=== PATIENT | male | born 1995 | race Caucasian/White ===

== ENCOUNTER 2021-01-29 00:30 | Emergency (ER) | payer OTHER, SELFPAY ==
[2021-01-29 00:35] VITALS: BP 192/101; PULSE 80; RESP 17; TEMP 36.6; O2SAT 98; BMI 57.6
--- NOTE | 2021-01-29 01:09 | ED_ITS ---
HPI - Ear Problem General: Chief complaint: Ear Stated complaint: Bug in Ear Time Seen by Provider: 01/29/21 00:44 Source: patient Mode of arrival: ambulatory Limitations: no limitations History of Present Illness: HPI Narrative: Moth flew into patient's ear prior to arrival. Feels mouth moving complains of ear pain MD Complaint: ear pain and foreign body Location: left ear Duration: intermittent Severity: moderate Relieving factors: nothing Discharge from ear: no Associated symptoms: Reports no associated symptoms Treatment prior to arrival: none Physical Exam Const: COMMON NORMALS: no acute distress and patient oriented x3 NUTRITIONAL APPEARANCE: obese HENMT: COMMON NORMALS: normocephalic, atraumatic and hearing grossly normal bilaterally HEAD & SCALP: normocephalic and atraumatic TYMPANIC MEMBRANE: other (Moth present blocking tympanic membrane visualization left ear) Neuro: COMMON NORMALS: patient oriented x3 Procedures FB Removal Ear Location: ear canal (L) Foreign Body Suspected: insect TM intact pre-procedure: yes If Insect Suspected: ear canal instilled with other (Saline) Foreign Body Removed: yes Foreign Body Removal Technique: irrigation Tympanic Membrane Intact Post Procedure: Yes Patient Tolerated Procedure: well and no complications Complications: none Course ED course: Irrigation complete of left ear moth removed intact. Follow-up with PCP next week Vital Signs: Vital signs: Vital Signs Temperature 97.8 F 01/29/21 00:35 Pulse Rate 80 01/29/21 00:35 Respiratory Rate 17 01/29/21 00:35 Blood Pressure 192/101 01/29/21 00:35 Pulse Oximetry 98 01/29/21 00:35 Discharge Plan Discharge Patient Disposition: Home Clinical Impression: Foreign body of ear, left Qualifiers: Encounter type: initial encounter Qualified Code(s): T16.2XXA - Foreign body in left ear, initial encounter Condition: Stable Discharge Orders: Discharge ED (Routine); Ordered 01/29/21 Ordered By: Meera Lara Referrals: Nu Paz FNP [Family Provider] - Discharge Diet: Usual diet Discharge Activity: Resume usual activity Patient Instructions: Ear Pain - Adult, Opioid Safety Coding Level of Care Code ED [employer] for Melissa Newberry
[2021-01-29 01:48] VITALS: BP 199/108; PULSE 80; RESP 16; TEMP 37; O2SAT 98
== END 2021-01-29 01:50 | disposition home or self-care (01) ==
PROVIDERS: Emergency Provider Nurse Practitioner Family; Family Provider Nurse Practitioner Family
DX: T16.2XXA Foreign body in left ear, initial encounter (principal); X58.XXXA Exposure to other specified factors, initial encounter
CPT/HCPCS: 69200; 99281

== ENCOUNTER → 2022-03-31 08:08 | Outpatient (BNVA) | payer OTHER, SELFPAY | PROVIDERS: Family Provider Nurse Practitioner Family; PCP Family Medicine; Visit Provider Family Medicine | DX: I10 Essential (primary) hypertension (principal); G47.33 Obstructive sleep apnea (adult) (pediatric); Z51.81 Encounter for therapeutic drug level monitoring; Z13.220 Encounter for screening for lipoid disorders | CPT/HCPCS: 80053; 80061; 85025 ==

== ENCOUNTER → 2022-11-20 09:46 | Outpatient (BNVA) | payer OTHER, SELFPAY | PROVIDERS: Family Provider Nurse Practitioner Family; PCP Family Medicine; Visit Provider Family Medicine | DX: Z51.81 Encounter for therapeutic drug level monitoring (principal) | CPT/HCPCS: 80053; 85025 ==

== ENCOUNTER → 2023-10-04 15:18 | Outpatient (BNVA) | payer OTHER, SELFPAY | PROVIDERS: Family Provider Nurse Practitioner Family; PCP Family Medicine; Visit Provider Family Medicine | DX: Z51.81 Encounter for therapeutic drug level monitoring (principal); Z13.1 Encounter for screening for diabetes mellitus | CPT/HCPCS: 80053; 83036; 85025 ==

== ENCOUNTER → 2024-09-30 10:11 | Outpatient (BNVA) | payer OTHER, SELFPAY | PROVIDERS: Family Provider Nurse Practitioner Family; PCP Family Medicine; Visit Provider Family Medicine | DX: Z00.00 Encounter for general adult medical examination without abnormal findings (principal); E66.01 Morbid (severe) obesity due to excess calories; Z13.6 Encounter for screening for cardiovascular disorders; Z51.81 Encounter for therapeutic drug level monitoring | CPT/HCPCS: 80053; 80061; 83036; 85025 ==